=== PATIENT | female | born 1975 | race Caucasian/White ===

== ENCOUNTER 2019-07-05 23:31 | Emergency (ER) | payer SELFPAY ==
[2019-07-06 00:02] VITALS: PULSE 83; TEMP 98.6; BMI 26.2
[2019-07-06] MEDS ORDERED: diphenhydrAMINE HCL 25 MG CAPSULE (FP) PO ONE ×2 (00:35→00:47)
[2019-07-06 00:36] VITALS: BP 159/90
--- NOTE | 2019-07-06 00:42 | PDOC ---
History of Present Illness - General Chief Complaint: Rash Stated Complaint: ALLERGIC REACTION Time Seen by Provider: 07/06/19 00:17 - History of Present Illness Initial Comments: 07/06/19 00:37 44f with no pmh presenting with raised puritic rash over the face, worsening over the past 3 days. She'd had this for 3 month, saw her linecasting machine keyboard operator 2 weeks ago who prescribed her a topical steroid cream (fluocinonide) but patient didn' t get any relief from it. Denies pain, fever, chills or joint pain. No known allergens Past History - Past Medical History Allergies/Adverse Reactions: Allergies Allergy/AdvReac Type Severity Reaction Status Date / Time No Known Allergies Allergy Verified 07/05/19 23:57 Home Medications: Ambulatory Orders NK [No Known Home Medication] 07/06/19 - Surgical History Cholecystectomy: Yes - Psycho Social/Smoking Cessation Hx Smoking History: Never smoked Have you smoked in the past 12 months: No Information on smoking cessation initiated: No Hx Alcohol Use: Yes (occasionally) Drug/Substance Use Hx: No Review of Systems - Review of Systems Able to Perform ROS?: Yes Is the patient limited Kazakh proficient: No Constitutional: No: Symptoms Reported HEENTM: No: Symptoms Reported Respiratory: No: Symptoms reported Cardiac (ROS): No: Symptoms Reported ABD/GI: No: Symptoms Reported Musculoskeletal: No: Symptoms Reported Integumentary: Yes: See HPI *Physical Exam - Vital Signs Last Vital Signs Temp Pulse Resp BP Pulse Ox 98.6 F 83 18 159/90 100 07/05/19 23:53 07/05/19 23:53 07/05/19 23:53 07/06/19 00:36 07/05/19 23:53 - Physical Exam General Appearance: Yes: Nourished, Appropriately Dressed. No: Apparent Distress HEENT: positive: EOMI, KENDALL, Normal ENT Inspection Respiratory/Chest: positive: Lungs Clear, Normal Breath Sounds. negative: Chest Tender, Respiratory Distress Cardiovascular: positive: Regular Rhythm, Regular Rate, S1, S2 Gastrointestinal/Abdominal: positive: Normal Bowel Sounds, Flat, Soft. negative : Tender Integumentary: positive: Other (dry erythematous macular rash with papules) Medical Decision Making - Medical Decision Making 07/06/19 00:48 44F with dry erythematous macular rash with papules consistent with atopic dermatitis. Patient already using steroid cream with no relief. Will give benadryl for the pruritus and will prescribe tacrolimus cream for the rash with dermatological follow up. ok to dc Discharge - Discharge Information Problems reviewed: Yes Clinical Impression/Diagnosis: Atopic dermatitis Condition: Improved Disposition: HOME - Admission No - Follow up/Referral Referrals: Josephine Gama MD [Staff Physician] - Nils Conner MD [Non Staff, Medical] - Nicholas Nair MD [Non Staff, Medical] - Lee Ann Cortes MD [Non Staff, Medical] - Lev Joshi MD [Non Staff, Medical] - Natalie Cobos [Staff Physician] - Cale Martins MD [Non Staff, Medical] - - Patient Discharge Instructions Patient Printed Discharge Instructions: DI for Atopic Dermatitis - Adult Additional Instructions: Follow up with any of the dermatologists in the provided list, or with your own if you wish. Come back to the emergency department for any new, worsening or concerning symptoms. - Post Discharge Activity
--- NOTE | 2019-07-06 01:20 | PDOC ---
Attending Attestation - Resident Resident Name: Loi Villar - ED Attending Attestation I have performed the following: I have examined & evaluated the patient, The case was reviewed & discussed with the resident, I agree w/resident's findings & plan, Exceptions are as noted - HPI HPI: 07/06/19 01:13 Ms. Martins is a 44-year-old female who presents emergency department with a complaint of facial rash Patient symptoms began actually approximately 1 month ago. At that time the rash was notably erythematous papular lesions all over her face. She was seen by a petroleum refining firer who prescribed a steroid cream. After using this cream she noted a worsening of her rash. Not itchy Not painful No fevers or chills There is no rash on any other location of her body No new foods, allergens. Patient has not changed her soap, detergent, lotion Of note, patient reports that she has had several months of what seems to be seborrheic dermatitis. She is been seen by her petroleum refining firer for this and they have been treating her with injection 07/06/19 01:24 - Physicial Exam PE: 07/06/19 01:20 GENERAL: The patient is in no acute distress. HEENT: Ears normal, nares patent, oropharynx clear without exudates. Moist mucous membranes. No oral lesions noted NECK: Normal range of motion, supple LUNGS: Breath sounds equal, clear to auscultation bilaterally. No wheezes, and no crackles. HEART: Regular rate and rhythm, normal S1 and S2 without murmur, rub or gallop. ABDOMEN: Soft, nontender, normoactive bowel sounds. EXTREMITIES: Normal range of motion NEUROLOGICAL: Cranial nerves II through XII grossly intact. Normal speech. No focal neurological deficits. SKIN: Erythematous patches, macules noted. Overlying the right cheek is the largest erythematous patch which is approximately 2.5 to 3 cm in diameter. No purulence. No excoriation. No pustules Scalp noted to have dry flaky skin no open skin noted - Medical Decision Making 07/06/19 01:23 44-year-old female presenting to the emergency department with no systemic signs of illness with a persistent facial rash which seemingly worsened after using steroids prescribed by her petroleum refining firer. Patient has already discontinued their use. I have encouraged her to follow-up with dermatology as it is unclear to me her diagnosis. She was never diagnosed with eczema in the past. Her rash is not typical for tinea corporis. Patient denies any exposure to possible allergen, lessening the likelihood of a contact dermatitis or allergic reaction. Clinical impression: Facial rash, initial presentation
== END 2019-07-06 01:14 | disposition home or self-care (01) ==
LOC: JER 23:31
DX: L20.89 Other atopic dermatitis (principal)
CPT/HCPCS: 99282-25

== ENCOUNTER 2021-08-24 14:25 | Emergency (ER) | payer OTHER ==
[2021-08-24 14:34] VITALS: BP 168/87; PULSE 60; TEMP 97.8; BMI 24.5
[2021-08-24] MEDS ORDERED: IBUPROFEN 600 MG TABLET (FP) PO ONE (15:00)
[2021-08-26 18:08] LABS: SARS-CoV-2 NAA Detected (Not Detected)
== END 2021-08-24 17:01 | disposition left against medical advice (07) ==
LOC: JER 14:25
DX: R51.9 Headache, unspecified (principal); M79.10 Myalgia, unspecified site; H66.003 Acute suppurative otitis media without spontaneous rupture of ear drum, bilateral
CPT/HCPCS: 99283-25; C9803; U0003; U0005

== ENCOUNTER 2022-01-27 15:41 | Emergency (ER) | payer OTHER ==
[2022-01-27 16:03] VITALS: BP 162/98; PULSE 66; TEMP 98; BMI 25.4
== END 2022-01-27 17:41 | disposition home or self-care (01) ==
LOC: JERFT 15:41
DX: H92.02 Otalgia, left ear (principal)
CPT/HCPCS: 99281-25

== ENCOUNTER 2024-01-09 18:34 | Emergency (ER) | payer OTHER ==
[2024-01-09 18:50] VITALS: BP 159/101; PULSE 70; RESP 18; TEMP 98; BMI 26.4
[2024-01-09] MEDS ORDERED: IBUPROFEN 600 MG TABLET (FP) PO ONE (19:56)
[2024-01-09] MEDS ORDERED: ACETAMINOPHEN 500 MG TABLET (FP) ONE (19:57)
[2024-01-09] MEDS: ACETAMINOPHEN 500 MG TABLET (FP) PO ONE (19:59)
[2024-01-09] MEDS: IBUPROFEN 600 MG TABLET (FP) PO ONE (20:00)
[2024-01-09 20:05] LABS: PH,URINE 5.5 (5.0-8.0); URINE APPEARANCE CLEAR; URINE BILIRUBIN NEGATIVE (NEGATIVE); URINE COLOR YELLOW; URINE GLUCOSE (UA) NEGATIVE (NEGATIVE); URINE KETONE NEGATIVE (NEGATIVE); URINE LEUK ESTERASE NEGATIVE (NEGATIVE); URINE NITRITE NEGATIVE (NEGATIVE); URINE PROTEIN NEGATIVE (NEGATIVE); URINE UROBILINOGEN 0.2 mg/dL (0.2-1.0)
[2024-01-09 20:08] LABS: HCG,QUALITATIVE URINE Negative
[2024-01-09] MEDS: LIDOCAINE 4% PATCH TP ONE (20:21)
[2024-01-09] MEDS ORDERED: LIDOCAINE PATCH REMOVAL MC SCH (22:00)
== END 2024-01-09 20:22 | disposition home or self-care (01) ==
LOC: JER 18:34 → JERFT 18:34
DX: M54.50 Low back pain, unspecified (principal)
CPT/HCPCS: 81003; 84703; 87086; 99283-25

== ENCOUNTER 2024-10-17 19:31 | Emergency (ER) | payer SELFPAY ==
[2024-10-17 19:44] VITALS: BP 159/96; PULSE 92; RESP 18; TEMP 98.2; BMI 24.5
[2024-10-17] MEDS ORDERED: ACETAMINOPHEN 500 MG TABLET (FP) ONE (22:46)
[2024-10-17] MEDS: ACETAMINOPHEN 500 MG TABLET (FP) PO ONE (22:54)
[2024-10-17 23:01] LABS: BASO % 0.6 % (0-2.0); EOS % 0.8 % (0-4.5); HEMATOCRIT 37.3 % (32.4-45.2); HEMOGLOBIN 11.4 GM/dL (10.7-15.3); LYMPH % 34.4 % (8-40); MCH 20.6 pg (25.7-33.7); MCHC 30.4 g/dl (32.0-36.0); MEAN CELL VOLUME 67.9 fl (80-96); MEAN PLT VOLUME 10.5 fl (7.5-11.1); NEUT % 54.2 % (42.8-82.8); PLATELET COUNT 242 10^3/uL (134-434); RDW 18.6 % (11.6-15.6); WHITE BLOOD COUNT 5.1 K/mm3 (4.0-10.0)
[2024-10-17 23:13] LABS: POTASSIUM 3.7 mmol/L (3.5-5.1)
[2024-10-17 23:17] LABS: CALCIUM 9.3 mg/dL (8.5-10.1)
[2024-10-17 23:18] LABS: ALBUMIN 3.8 g/dl (3.4-5.0); BLOOD UREA NITROGEN 14.7 mg/dL (7-18)
[2024-10-17 23:21] LABS: CREATININE 0.9 mg/dL (0.55-1.3)
[2024-10-17 23:23] LABS: BILIRUBIN,TOTAL 0.5 mg/dL (0.2-1); TOT PROT 7.2 g/dl (6.4-8.2)
[2024-10-17 23:52] LABS: ANISOCYTOSIS 1+; MACROCYTOSIS 1+; ROULEAU 1+
[2024-10-18] MEDS ORDERED: CLINDAMYCIN 600MG PREMIX IVPB 600 MG/50 ML BAG IVPB ONE (01:36)
== END 2024-10-18 02:19 | disposition home or self-care (01) ==
LOC: JER 19:31
DX: R51.9 Headache, unspecified (principal); R42 Dizziness and giddiness
CPT/HCPCS: 36415; 70450-TC; 80053; 84703; 85025; 99284-25